=== PATIENT | female | born 1960 | race Caucasian/White ===

== ENCOUNTER 2019-04-04 15:45 | Outpatient (RCR) | payer BC, SELFPAY ==
--- NOTE | 2019-03-21 17:07 | PTOPEVAL ---
PHYSICAL THERAPY EVALUATION AND PLAN OF CARE 03-21-2019 The PT evaluation was completed today and enclosed is the plan of treatment. She is scheduled for 0-2x/week for 4 weeks. Thank you for referring Ms. Mccauley to [facility]. Please review, sign, date and return this plan of care ARNOLDO. I agree with and certify that the following plan of care is medically necessary. Referring Physician Date Attending Provider: Dr. Juan Arndt *PT Outpatient Evaluation Start: 03/21/19 15:48 Assessment Status Assessment Status Evaluation Outpatient Past Medical History Neurological History Hx Neurological Disorders No Significant History Cardiovascular History Hx Cardiac Disorders No Significant History Respiratory History Hx Respiratory Disorders No Significant History Gastrointestinal History Hx Gastrointestinal Disorders No Significant History Genitourinary History Hx Genitourinary Disorders No Significant History Musculoskeletal History Hx Other Musculoskeletal Disorders Yes: L ankle fracture with ORIF Endocrine History Hx Endocrine Disorders No Significant History HEENT History Hx HEENT Disorders No Significant History Other History Hx Other Surgeries Yes: tonsillectomy; Evaluation Information Problem Diagnosis s/p R breast mastectomy and reconstruction Onset Jan 2019 Prior Level of Function Activity Level (Last 3 Months) Occupation title one reading teacher Hand Dominance Right Activity of Daily Living Ability Independent Indoor/Home Mobility Independent Community Mobility Independent Stairs Ability Independent Functional Cognition (Planning, Shopping Independent , Taking Medications) Cooking Yes Cleaning Yes Laundry Yes Shopping Yes Driving Yes Home Setting Living Situation Alone Comments Additional Prior Level of Function is doing all home and work Comments tasks, monitoring the weight and not lifting too much; carrying smaller loads; have not been doing any exercises with R UE, only active motions with home tasks and activities; prior to surgery, active, use arm wt- have 8# at home; have membership at fitness center- discussed return to active aerobic exercise with
--- NOTE | 2019-04-08 09:29 | PCPTNOTE ---
pt called and canceled today's appt; stated she was doing well with her self MLD and shoulder exercises.
--- NOTE | 2019-05-02 08:46 | PCPTNOTE ---
PHYSICAL THERAPY DISCHARGE 05-02-2019 Attending Provider: Dr. Arndt Patient:Isabel Mccauley Date of :1960 Ms. Mccauley has received 2 Physical Therapy sessions on March 21 and April 04, for the diagnosis of s/p breast reconstruction. She was educated on shoulder stretching home exercise program, self manual lymph drainage and lymphedema skin care and education. Isabel was independent and demonstrated understanding of the education, therefore she will be discharged from therapy at this time. The goals were achieved. Thank you for referring Ms. Mccauley to [facility]. Please review, sign, date and return this discharge summary ARNOLDO. I have been updated about the patient's current status and I agree with discharge from the above service at this time. Referring Physician Date
== END 2019-05-02 11:03 | disposition home or self-care (01) ==
LOC: ANHPT 15:45
DX: Z48.89 Encounter for other specified surgical aftercare (principal); Z98.82 Breast implant status
CPT/HCPCS: 97140; 97161